=== PATIENT | female | born 1980 | race Caucasian/White ===

== ENCOUNTER 2022-06-08 12:07 | Day surgery (SDC) | payer OTHER, SELFPAY ==
--- NOTE | 2022-06-01 12:13 | PCM.HP.BLA ---
History and Physical Date of Admission: 06/08/22 HPI: The patient is a 41 year old female presenting for pre-operative visit. She is scheduled for Hysteroscopy D&C, and endometrial ablation for menorrhagia and possible endometrial polyp on 06/08/22. Procedure discussed along with risks, benefits and complications. Other alternatives discussed for management. Consent form signed? Yes. ? ? PAST MEDICAL HISTORY PAST MEDICAL HISTORY Diagnosis Date ? Abnormal glandular Papanicolaou smear of cervix 08/17 ? Abn. Pap smear (cervix) ? Complication of anesthesia ? ? NAUSEA WITH ANESTHESIA ? Postcoital bleeding ? ? Rh negative status during 05/28/2012 ? ? PAST SURGICAL HISTORY PAST SURGICAL HISTORY Procedure Laterality Date ? BREAST AUGMENTATION WITH IMPLANT ? 07/19 ? Breast augmentation ? PAST SURGICAL HISTORY OF ? 08/2004 ? benign bone tumor, right leg ? UNSPECIFIED ORAL SURGERY PROCEDURE, BY REPORT ? 1996 ? [place] teeth extracted ? ? ? CURRENT MEDICATIONS Current Outpatient Medications Medication Sig Dispense Refill ? escitalopram oxalate (LEXAPRO) 20 mg tablet take 1 tablet by mouth once daily 90 tablet 3 ? L-Norgest and E Estradiol-E Estrad (ASHLYNA) 0.15 mg-30 mcg (84)/10 mcg (7) Take 1 tablet by mouth once daily. 91 tablet 3 ? No current facility-administered medications for this visit. ? ? ALLERGIES: Patient has no known allergies. ? PERSONAL HISTORY: SOCIAL HISTORY Social History ? Tobacco Use ? Smoking status: Never ? Smokeless tobacco: Never Vaping Use ? Vaping Use: Never used Substance Use Topics ? Alcohol use: Yes ? ? Comment: Occasionally,NOT WHILE ? Drug use: No ? FAMILY HISTORY: FAMILY HISTORY FAMILY HISTORY Problem Relation Age of Onset ? Seizures Mother ? ? EPILEPSY ? Diabetes Father ? ? Prostate Cancer Father ? ? Diabetes Maternal Grandmother ? ? Cancer Maternal Grandfather ? ? LUNG, smoker ? Heart Paternal Grandmother ? ? [place] ? Heart Paternal Grandfather ? ? [place] ? Alcohol/Drug Paternal Grandfather ? ? ETOH ? ? REVIEW OF SYMPTOMS: GENERAL: denies fevers or chills ENDOCRINOLOGY: has not been on steroids Cardiology : denies palpitations or chest pain Respiratory: denies SOB or cough Hematology: denies history of prolonged bleeding or easy bruising or VTE Allergy: Denies history of personal or family history of allergy to anesthesia ? PHYSICAL EXAMINATION: ? VITALS: Blood pressure 144/96, pulse 71, resp. rate 16, height 5' 3 (1.6 m), weight 118 lb (53.5 kg), last menstrual period 09/07/2019, SpO2 100 %. ? GENERAL: The patient is well nourished, well hydrated in no acute distress. , The patient is oriented to time, place, and person. NECK: Supple. No lynphadenopathy, normal thyroid, no thyromegaly. LUNGS: Clear to auscultation bilaterally. no wheezes, rhonchi or rales HEART: Regular rate and rhythm, Normal heart sounds, and No murmurs or gallops ? ? IMPRESSION: menorrhagia, possible endometrial polyp ? PLAN: The risks/benefits/alternatives and personal involved for the planned hysterosocpy with possible polyp resection and endometrial ablation were reviewed with the patient. Her questions were answered to her satisfaction and she desires to proceed. Consent was signed. I reviewed with her postop instructions and expectations. ? I have reviewed and updated past medical and surgical history, medications and allergies Assessment & Plan Assessment/Plan (1) Menorrhagia: (2) Endometrial polyp:
[2022-06-08] VITALS (8 sets, daily range): BP systolic 139–159; BP diastolic 84–96; PULSE 72–95; RESP 16–18; TEMP 36.2–36.6; O2SAT 97–100; BMI 21.4
[2022-06-08] MEDS: Lactated Ringers 1,000 ML 15 ML IV (12:39)
[2022-06-08] MEDS: Acetaminophen 500 MG Tablet 1000 MG PO (12:39)
[2022-06-08] MEDS: Ketorolac 30 MG/ML Syringe IV (12:40)
[2022-06-08 12:41] LABS: Hematocrit 40.8 % (37-47); Hemoglobin 13.8 g/dL (12.0-15.0); Mean Corp Hgb Conc 33.8 g/dL (32-36); Mean Corpuscular Hgb 31.3 pg (27.0-32.0); Mean Corpuscular Volume 92.5 fL (81-99); Mean Platelet Vol. 9.9 fl (6.2-12.0); Platelet Count 190 K/mm3 (150-450); RBC Distribution Width CV 11.9 % (11.6-14.6); RBC Distribution Width SD 40.5 fl (35.1-43.9); Red Blood Count 4.41 M/mm3 (4.2-5.4); White Blood Count 5.4 K/mm3 (4.4-11.0)
[2022-06-08 12:50] LABS: Internal QC Validated? YES +Cl - CLEAR BKGD; Pregnancy, Urine Negative Negative
--- NOTE | 2022-06-08 14:27 | DCINST_ITS ---
Discharge Instructions Diet Discharge Diet: No restrictions Activity May resume sexual activity in: 1 week Lifting Restrictions: none Dressing / Incision Call your doctor if your incision/area has: Sudden Increased Bleeding and Foul Smelling Discharge Call your doctor if you observe: Fever of 101 or Higher and Using more than 1 pad per hour (for 2 hrs in a row) Follow Up Care Please Follow Up With: Jennifer Pena MD When: 2-4 weeks or as needed. Call [phone] to make an appointment or with any concerns. Test Results: Test results from this visit will be discussed in further detail at your follow- up appointment, if applicable. Discharge Plan Admission Primary Reason for Your Visit: Hysteroscopy with endometrial ablation Attending Provider: Jennifer Pena Primary Care Provider: Johanna Gomes Discharge Orders/Prescriptions Prescriptions: Continued ibuprofen 200 MG tablet 600 mg PO Q6H PRN PRN (Reason: Pain) Qty: 30 0RF escitalopram oxalate 20 mg tablet 20 mg PO DAILY Label Comments: take 1 tablet by mouth once daily Discontinued L norgest/e.estradiol-e.estrad [Ashlyna] 0.15 mg-30 mcg (84)/10 mcg (7) tablets,dose pack,3 month 1 tab PO DAILY Label Comments: take 1 tablet by mouth once daily Referrals / Follow Up: Johanna Gomes MD [Primary Care Provider] - Disposition Disposition (needs filled in before D/C Order can be placed): Home, Self Care
[2022-06-08] MEDS: Lidocaine 1%/Epi 1:200 (30ml) 30 ML AMPUL (14:32)
[2022-06-08] MEDS: Lactated Ringers 1,000 ML 75 ML IV (14:46)
--- NOTE | 2022-06-08 14:48 | PCM.OPRPT ---
Problems Associated Problem List Diagnoses (1) Endometrial polyp: (2) Menorrhagia: Report of Operation Date of Procedure: 06/08/22 Pre-Operative Diagnosis: menorrhagia, endometrial polyp Post-Operative Diagnosis: same Surgery/Procedure Performed:: hysteroscopy Description of Surgical Findings:: possible small fundal polyp right side, normal narrow endometrial cavity Surgeon: Jennifer Pena Type of Anesthesia: MAC Anesthesiologist: Rory Pandey Special Medications: none Specimen's removed: none Drains: none Estimated Blood Loss (mL): 10 Fluids Replaced: 1200 Description of Procedure: The patient was taken to the OR where she was prepped and draped in dorsal lithotomy position. The weighted speculum was placed in the vagina and the anterior lip of the cervix was grasped with a single-tooth tenaculum. A paracervical block was administered with 1% lidocaine with 1-200,000 epinephrine solution. The cervix was dilated serially with Hegar dilators. The 5mm hysteroscope was placed into the uterine cavity and the above findings were noted. Bilateral tubal ostia were identified. The endometrial cavity was somewhat narrow. The uterus sounded to 8cm and the cervical length was 3.5cm. The endometrial cavity length was 4.5cm. I then attempted to see the instrument in usual fashion. The nerve not open up to have the line in the green. Therefore the instrument was removed and resected in its cavity length of 4 cm. When I inserted the Faby device this time, and was advancing it into the fundus, no resistance was met. Diagnosis of uterine perforation that was incidental the case and did not cause any complications was noted. I remove the instruments. No heat or cautery or curettage was performed. The hysteroscope was replaced and confirmed perforation through the uterine fundus. No active bleeding was noted. The tenaculum was removed and the tenaculum site was noted to be hemostatic. All sponge and needle counts were correct. A vaginal sweep was performed by me. The patient was awakened and taken to the recovery room in stable condition. Hysteroscopic ins: 400cc normal saline Hysteroscopic outs:200cc Findings: Endometrial cavity: Possible small sessile polyp in the right upper fundus otherwise normal endometrial and endocervical cavity Cervix: Normal Vagina: Normal Grafts/Implants Used: none Procedure Start Time: 14:32 Procedure Stop Time: 14:45 Complications none Admit VTE Documentation VTE Present on Admission: No VTE Mechan Device Prophylaxis: SCD's VTE Pharm Prophylaxis ordered?: No Reason prophylaxis not ordered:: Procedure Not Indicated
== END 2022-06-08 16:53 | disposition home or self-care (01) ==
LOC: SDC 12:10 → AC 12:12
PROVIDERS: Anesthesiology; PCP Internal Medicine; Referring Provider Obstetrics & Gynecology; Visit Provider Obstetrics & Gynecology
PROC: 0U5B8ZZ Destruction of Endometrium, Via Natural or Artificial Opening Endoscopic (ICD-10-PCS; CPT 58558; principal; 2022-06-08 13:30)
DX: N84.0 Polyp of corpus uteri (principal); F41.9 Anxiety disorder, unspecified; Z79.899 Other long term (current) drug therapy
CPT/HCPCS: 58555; 00952; 81025; 85027; J7120; J2405

== ENCOUNTER 2022-11-23 08:00 | Day surgery (SDC) | payer OTHER, SELFPAY ==
--- NOTE | 2022-10-27 10:19 | HP.PCM_ITS ---
History and Physical Date of Admission: 10/27/22 HPI: The patient is a 41 year old female presenting for pre-operative visit. She is scheduled for hysteroscopy with HTA abaltion, for AUB on 11/23/22 Procedure discussed along with risks, benefits and complications. Other alternatives discussed for management. Consent form signed? Yes. ? ? PAST MEDICAL HISTORY PAST MEDICAL HISTORY Diagnosis Date ? Abnormal glandular Papanicolaou smear of cervix 08/17 ? Abn. Pap smear (cervix) ? Complication of anesthesia ? ? NAUSEA WITH ANESTHESIA ? Postcoital bleeding ? ? Rh negative status during 05/28/2012 ? ? PAST SURGICAL HISTORY PAST SURGICAL HISTORY Procedure Laterality Date ? BREAST AUGMENTATION WITH IMPLANT ? 07/15/2005 ? Breast augmentation ? HYSTEROSCOPY, DIAGNOSTIC (SEPARATE N/A 06/08/2022 ? Hysteroscopy - was to have ablation but narrow cavity and had perforation, procedure terminated ? PAST SURGICAL HISTORY OF ? 08/15/2004 ? benign bone tumor, right leg ? UNSPECIFIED ORAL SURGERY PROCEDURE, BY REPORT ? 10/15/1996 ? [place] teeth extracted ? ? ? CURRENT MEDICATIONS Current Outpatient Medications Medication Sig Dispense Refill ? escitalopram oxalate (LEXAPRO) 20 mg tablet Take 1 tablet by mouth once daily. 90 tablet 3 ? L-Norgest and E Estradiol-E Estrad (ASHLYNA) 0.15 mg-30 mcg (84)/10 mcg (7) Take 1 tablet by mouth once daily. 91 tablet 3 ? ondansetron (ZOFRAN) 4 mg tablet Take 1 tablet by mouth every 8 hours as needed for nausea/vomiting. (Patient not taking: Reported on 09/12/2022) 12 tablet 0 ? No current facility-administered medications for this visit. ? ? ALLERGIES: Patient has no known allergies. ? PERSONAL HISTORY: SOCIAL HISTORY Social History ? Tobacco Use ? Smoking status: Never ? Smokeless tobacco: Never Vaping Use ? Vaping Use: Never used Substance Use Topics ? Alcohol use: Yes ? ? Comment: Occasionally,NOT WHILE ? Drug use: No ? FAMILY HISTORY: FAMILY HISTORY FAMILY HISTORY Problem Relation Age of Onset ? Seizures Mother ? ? EPILEPSY ? Diabetes Father ? ? Prostate Cancer Father ? ? Diabetes Maternal Grandmother ? ? Cancer Maternal Grandfather ? ? LUNG, smoker ? Heart Paternal Grandmother ? ? [place] ? Heart Paternal Grandfather ? ? [place] ? Alcohol/Drug Paternal Grandfather ? ? ETOH ? ? REVIEW OF SYMPTOMS: GENERAL: denies fevers or chills ENDOCRINOLOGY: has not been on steroids Cardiology : denies palpitations or chest pain Respiratory: denies SOB or cough Hematology: denies history of prolonged bleeding or easy bruising or VTE Allergy: Denies history of personal or family history of allergy to anesthesia ? PHYSICAL EXAMINATION: ? VITALS: Blood pressure 110/66, height 5' 3 (1.6 m), weight 118 lb (53.5 kg), last menstrual period 06/08/2022. ? GENERAL: The patient is well nourished, well hydrated in no acute distress. , The patient is oriented to time, place, and person. NECK: Supple. No lynphadenopathy, normal thyroid, no thyromegaly. LUNGS: Clear to auscultation bilaterally. no wheezes, rhonchi or rales HEART: Regular rate and rhythm, Normal heart sounds, and No murmurs or gallops ? PELVIC US 04/19/22 Impression A retroverted uterus seen that measures 66 mm x 41 mm x 42 mm. The myometrium is heterogeneous which is suspicious of adenomyosis but no obvious fibroids are observed. The central endometrium complex measures 10 mm in combined thickness. there is a hyperechoic structure that measures 8mm in greatest dimension- demonstrates blood flow. this could represent a polyp. Both ovaries are visualized and appear normal. No adnexal masses were observed. There is no free fluid visualized in the peritoneal cavity. Technique: Three dimensional imaging was created on a dedicated stand-alone 3D workstation with images created and archived, and supervised and reviewed by the interpreting physician utilizing images from a US Scan performed on 04/19/22 ?Duplex ?scan was performed using B-Mode/wilcox scale imaging and Doppler spectral analysis and color flow.? Recommendations consider hysteroscopic evaluation of endometrium. Follow up as clinically indicated. Method Transabdominal, transvaginal, 3D ultrasound examination, Color Doppler examination Uterus Uterus: Visualized Uterus position: retroverted Myometrium: suspicious of adenomyosis Uterus long 66 mm Uterus ap 41 mm Uterus tr 42 mm Uterus Vol 59.5 cm? Endometrial thickness, total 10.0 mm Uterine polyp D1 8 mm Uterine polyp D2 5 mm Uterine polyp D3 6 mm Uterine polyp mean 6.3 mm Right Ovary Rt ovary: Visualized Rt ovary D1 20 mm Rt ovary D2 10 mm Rt ovary D3 21 mm Rt ovary Vol 2.2 cm? Left Ovary Lt ovary: Visualized Lt ovary D1 13 mm Lt ovary D2 18 mm Lt ovary D3 7 mm Lt ovary Vol 0.8 cm? ? IMPRESSION: menorrhagia, possible endometrial polyp ? PLAN: The risks/benefits/alternatives and personal involved for the planned hysteroscopy w/ HTA ablation were reviewed with the patient. Her questions were answered to her satisfaction and she desires to proceed. Consent was signed. I reviewed with her postop instructions and expectations. ? ? I have reviewed and updated past medical and surgical history, medications and allergies Assessment & Plan Assessment/Plan (1) Endometrial polyp: (2) Menorrhagia:
[2022-11-23] VITALS (7 sets, daily range): BP systolic 127–151; BP diastolic 80–91; PULSE 84–96; RESP 16–18; TEMP 36.3–37.4; O2SAT 90–100; BMI 21.3
[2022-11-23] MEDS: Lactated Ringers 1,000 ML 15 ML IV (08:31)
[2022-11-23] MEDS: Acetaminophen 500 MG Tablet 1000 MG PO (08:32)
[2022-11-23] MEDS: Ketorolac 30 MG/ML Syringe IV (08:32)
[2022-11-23 08:40] LABS: Hematocrit 41.1 % (37-47); Hemoglobin 13.8 g/dL (12.0-15.0); Mean Corp Hgb Conc 33.6 g/dL (32-36); Mean Corpuscular Hgb 30.9 pg (27.0-32.0); Mean Corpuscular Volume 91.9 fL (81-99); Mean Platelet Vol. 10.2 fl (6.2-12.0); Platelet Count 204 K/mm3 (150-450); RBC Distribution Width CV 12.1 % (11.6-14.6); Red Blood Count 4.47 M/mm3 (4.2-5.4); White Blood Count 4.1 K/mm3 (4.4-11.0)
[2022-11-23 09:05] LABS: Internal QC Validated? YES +Cl - CLEAR BKGD
[2022-11-23 09:08] LABS: Pregnancy, Urine Negative Negative
--- NOTE | 2022-11-23 09:50 | EMB_PTH ---
PATIENT: CARMELO BAILEY [place] [facility] [id number] AGE/SX: 41/F ROOM: RE11/23/[address]: Dr. Jennifer Pena MD : 1980 BED: DIS: 11/23/2022 SPEC #: [id number] RECD: 11/23/22 13:41 STATUS: IAN REArnold #: [id number] KODY: 11/23/22 09:[address]: Jennifer Pena DEPT: SURGICAL PATHOLOGY RECD BY: Anat Medina ENTERED: 11/24/22 08:16 SP TYPE: ENDOM BX/C OTHR DR: Dr. Johanna Gomes MD Tissues: Endometrium, NOS Procedures: Surgery Specimen Level IV HEADER OPERATION: Hysteroscopy with HTA ablation PRE-OP DIAGNOSIS: Endometrial polyp, menorrhagia TISSUE SUBMITTED: Endometrial curettings MICROSCOPIC DIAGNOSIS Endometrium, curettings: Weakly proliferative endometrium with minimal disorder. Mild chronic endometritis. AM:marshall 11/27/2022 MICROSCOPIC DESCRIPTION Slides are reviewed. GROSS DESCRIPTION Received in fixative is one container labeled with the patient's name and designated endometrial curettings. The specimen consists of multiple irregular fragments of light kaur soft tissue that in aggregate measure 2 x 1.5 x 0.1 cm. The specimen is totally submitted in one cassette. / AM:marshall 11/24/2022 TC:3 CPT: 38689
[2022-11-23] MEDS: Vasopressin 20 UNITS/ML Vial (10:01)
--- NOTE | 2022-11-23 10:33 | DCINST_ITS ---
Discharge Instructions Diet Discharge Diet: No restrictions Activity Discharge Activity: May Shower and May Take a Tub Bath (in 2 weeks) May resume sexual activity in: 2 weeks Lifting Restrictions: none Dressing / Incision Call your doctor if your incision/area has: Sudden Increased Bleeding and Foul Smelling Discharge Call your doctor if you observe: Fever of 101 or Higher and Using more than 1 pad per hour (for 2 hrs in a row) Follow Up Care Please Follow Up With: Jennifer Pena MD When: 2-4 weeks or as needed. Call [phone] to make an appointment or with any concerns. Test Results: Test results from this visit will be discussed in further detail at your follow- up appointment, if applicable. Discharge Plan Admission Primary Reason for Your Visit: Endometrial ablation Attending Provider: Jennifer Pena Primary Care Provider: Johanna Gomes Discharge Orders/Prescriptions Prescriptions: No Action ibuprofen 200 MG tablet 600 mg PO Q6H PRN PRN (Reason: Pain) Qty: 30 0RF escitalopram oxalate 20 mg tablet 20 mg PO DAILY Label Comments: take 1 tablet by mouth once daily L norgest/e.estradiol-e.estrad [Ashlyna] 0.15 mg-30 mcg (84)/10 mcg (7) Tablets,Dose Pack,3 Month 1 tab PO DAILY Referrals / Follow Up: Johanna Gomes MD [Primary Care Provider] - Disposition Disposition (needs filled in before D/C Order can be placed): Home, Self Care
--- NOTE | 2022-11-23 10:35 | PCM.OPRPT ---
Problems Associated Problem List Diagnoses (1) Menorrhagia: (2) Endometrial polyp: Report of Operation Date of Procedure: 11/23/22 Pre-Operative Diagnosis: menorrhagia, endometrial polyp Post-Operative Diagnosis: same Surgery/Procedure Performed:: hysteroscopy D&C w/ HTA endometrial ablation Description of Surgical Findings:: narrow endometrial cavity w/ lush endometrium, small anterior polyp, normal cervix Surgeon: Jennifer Pena packager and strapper: None Type of Anesthesia: MAC/Supplemental/Local Anesthesiologist: Genie Ferguson Special Medications: none Specimen's removed: endometrial curettings, possible polyp Drains: none Estimated Blood Loss (mL): 10 Fluids Replaced: 1100 Description of Procedure: The patient was taken to the OR where she was prepped and draped in dorsal lithotomy position. The weighted speculum was placed in the vagina and the anterior lip of the cervix was grasped with a single-tooth tenaculum. A paracervical block was administered with 1% lidocaine with 1-100,000 epinephrine solution. The cervix was dilated serially with Hegar dilators. The HTA hysteroscope was placed into the uterine cavity and the above findings were noted. Bilateral tubal ostia were identified. The uterus sounded to 9 cm and the cervical length was 4 cm. The endometrial cavity length was 5 cm. The hysteroscope was removed. A gentle sharp curettage was done of the uterine cavity. The specimen was handed off and sent to pathology. The HTA device was inserted back into the endocervical cavity and a good seal was ensured. Hysteroscopy was reinitiated. No other abnormal findings were noted. The procedure was initiated and the warm up, ablation and cooldown was completed without interruption. During the ablation procedure gentle traction was held on the tenaculum and the cervix was visualized and no fluid was leaking from the cervix. . When the ablation procedure and cooldown cycle was completed the instrument was removed. The tenaculum was removed and the tenaculum site was noted to be hemostatic. All sponge and needle counts were correct. A vaginal sweep was performed by me. The patient was awakened and taken to the recovery room in stable condition. Hysteroscopic ins: 1500cc normal saline Hysteroscopic outs:1500cc Findings: Endometrial cavity: Normal, no fibroids or polyps noted Cervix: Normal Vagina: Normal Grafts/Implants Used: none Procedure Start Time: 10:39 Procedure Stop Time: 11:07 Complications none Admit VTE Documentation VTE Present on Admission: No VTE Mechan Device Prophylaxis: SCD's VTE Pharm Prophylaxis ordered?: No Reason prophylaxis not ordered:: Procedure Not Indicated
[2022-11-23] MEDS: Lactated Ringers 1,000 ML 75 ML IV (11:10)
== END 2022-11-23 13:08 | disposition home or self-care (01) ==
LOC: SDC 08:01 → AC 08:03
PROVIDERS: PCP Internal Medicine; Referring Provider Obstetrics & Gynecology; Visit Provider Obstetrics & Gynecology
PROC: 0U5B8ZZ Destruction of Endometrium, Via Natural or Artificial Opening Endoscopic (ICD-10-PCS; CPT 58563; principal; 2022-11-23 09:35)
DX: N71.1 Chronic inflammatory disease of uterus (principal); N92.0 Excessive and frequent menstruation with regular cycle; F41.9 Anxiety disorder, unspecified; Z79.899 Other long term (current) drug therapy
CPT/HCPCS: 58563; 81025; 85027; 88305; J7120; J2405